=== PATIENT | female | born 1990 | race Caucasian/White ===

== ENCOUNTER → 2020-09-11 14:06 | Outpatient (BNVA) | payer MEDICAID, SELFPAY | PROVIDERS: Family Provider Internal Medicine; Visit Provider Nurse Practitioner Women's Health | DX: N92.6 Irregular menstruation, unspecified (principal) | CPT/HCPCS: 81025 ==

== ENCOUNTER → 2020-09-13 09:46 | Outpatient (BNVA) | payer MEDICAID, SELFPAY | PROVIDERS: Family Provider Internal Medicine; Visit Provider Nurse Practitioner Women's Health | DX: Z34.80 Encounter for supervision of other normal pregnancy, unspecified trimester (principal) | CPT/HCPCS: 80307; 80324; 80359; 81000; 82950; 85027; 86592; 86762; 86803; 86850; 86900; 87077; 87086; 87184; 87340; 87806 ==

== ENCOUNTER 2021-01-19 11:52 | Emergency (ER) | payer SELFPAY ==
[2021-01-19 11:59] VITALS: PULSE 78; RESP 18; TEMP 36.6; O2SAT 99; BMI 44.4
--- NOTE | 2021-01-19 12:04 | W.ED.DENTAL ---
HPI - Dental/Oral General: Chief complaint: Dental/Oral Stated complaint: SORE TOOTH Time Seen by Provider: 01/19/21 11:55 History of Present Illness: Associated symptoms: Denies ear or mastoid pain, fever(s) or odynophagia Review of Systems Const: Denies: fever(s), chills, body aches, fatigue or malaise Eyes: Denies: change in vision ENMT: Reports: dental pain; Denies: throat pain, odynophagia, hoarseness, swelling of lips/tongue, oral sores, ear or mastoid pain, ear discharge or nasal discharge Card: Denies: chest pain, palpitations or edema Resp: Denies: dyspnea GI: Denies: nausea or vomiting Musc: Denies: neck pain Skin/Breast: Denies: rash Neuro: Denies: headache(s) or dizziness PFSH ED PFSH: Medical History Anxiety No pertinent past medical history neghx: htn,dm,thyroid,dvt/pe PCP: None Surgical History History of tonsillectomy and adenoidectomy (~1998) Hx laparoscopic cholecystectomy (~2012) Family History Grandmother Heart disease Maternal Diabetes Maternal and Paternal Father Hypertension Denies family history of Colon cancer Ovarian cancer Hypercholesteremia Breast cancer Uterine cancer Thyroid disease Stroke Physical Exam Const: COMMON NORMALS: no acute distress, patient oriented x3, no limitations and alert GENERAL APPEARANCE: cooperative HENMT: COMMON NORMALS: normocephalic, atraumatic and Normal external nose present HEAD & SCALP: normal to inspection, normocephalic and atraumatic HEAD IMAGES: 1. mild swelling; no abscess NOSE: Normal external nose present MOUTH: Normal oral and palatal mucosa present, lip normal and tongue normal TEETH & GINGIVA: Yes caries, Yes poor dentition and Yes other (extremely poor dentition with extensive widespread caries) THROAT: posterior oropharynx normal, tonsils normal and uvula midline Neck/C-Spine: COMMON NORMALS: full ROM, no lymphadenopathy and no meningeal signs Resp: COMMON NORMALS: normal respiratory effort Cardio: COMMON NORMALS: regular rate and regular rhythm RATE: regular rate RHYTHM: regular rhythm Neuro: COMMON NORMALS: patient oriented x3 and CN's II-XII intact bilaterally SENSORIUM/ORIENTATION: Yes alert MENINGEAL SIGNS: Yes no meningeal signs Course Vital Signs: Vital signs: Vital Signs Temperature 98.3 F 01/19/21 12:12 Pulse Rate 88 01/19/21 12:12 Respiratory Rate 16 01/19/21 12:12 Blood Pressure 156/76 01/19/21 12:12 Pulse Oximetry 98 01/19/21 12:12 MDM - Dental/Oral MDM Narrative: Medical decision making narrative: Patient has extensive widespread dental disease. Unsure which specific tooth is causing her infection but she does have inflammation to her right lower mandibular line. She has no submandibular or anterior neck swelling. There is no discernible abscess at this time. Will place patient on Pen-VK and recommend very close follow-up with a dentist as soon as possible. She was given dental resources. She states she has seen [facility] dental clinic previously and will try to follow-up with them. Return to ED precautions given. Discharge Plan Discharge Patient Disposition: Home Clinical Impression: Dental infection Condition: Stable Prescriptions: New penicillin V potassium 500 mg tablet 500 mg PO Q8H 7 Days Qty: 21 RF: 0 No Action prenat.vits,darby,[id number] Tablet 1 tab PO DAILY RF: 0 famotidine [Pepcid AC] 20 mg tablet 20 mg PO DAILY PRNRF: 0 cephalexin 500 mg capsule 500 mg PO BID 7 Days Qty: 14 RF: 0 Discharge Orders: Discharge ED (Routine); Ordered 01/19/21 Ordered By: Liz Gray Patient Instructions: Dental Caries (Cavities), Dental Abscess (ED), Toothache (ED) Activity Restrictions/Additional Instructions: As we discussed please follow-up with a dentist as soon as possible. You have been provided a dental resource handout. Begin antibiotics immediately. You may use Tylenol as needed for discomfort and warm compresses to the outside of your face. You need to return to the emergency department in 48 hours if pain and swelling continues to increase. Coding Level of Care Code ED Case Management Associate for [facility]
[2021-01-19 12:06] VITALS: BP 182/96; PULSE 90; RESP 16; TEMP 36.9; O2SAT 98
[2021-01-19 12:12] VITALS: BP 156/76; PULSE 88; RESP 16; TEMP 36.8; O2SAT 98
== END 2021-01-19 12:15 | disposition home or self-care (01) ==
PROVIDERS: Emergency Provider Physician Assistant
DX: K04.7 Periapical abscess without sinus (principal)
CPT/HCPCS: 99281

== ENCOUNTER 2021-03-27 10:00 | Inpatient (IN) | payer SELFPAY ==
[2021-03-27] VITALS (75 sets, daily range): BP systolic 109–212; BP diastolic 70–107; PULSE 63–142; RESP 16–18; TEMP 36–36.7; O2SAT 91–100; BMI 44.0
[2021-03-27 09:18] LABS: Amphetamines Screen Urine Negative (Negative); Barbiturates Screen Urine Negative (Negative); Benzodiazepines Screen Urine Negative (Negative); Cocaine Screen Urine Negative (Negative); Opiate Screen Urine Negative (Negative); PCP Screen Urine Negative (Negative); THC Screen Urine Positive (Negative)
[2021-03-27 09:21] LABS: Bacteria Urine 1+ /hpf; Bilirubin Urine Neg (Negative); Blood Urine 3+ (Negative); Glucose Urine UA Norm (Normal); Ketones Urine Negative (Negative); Leukocyte Esterase Urine 2+ (Negative); Nitrate Urine Negative (Negative); Protein Urine Neg (Negative); Specific Gravity, Urine 1.025 (1.005-1.030); Squamous Epithelial Cell Urine 25-40 /hpf (0-5); Urine Appearance Cloudy (CLEAR); Urine Color Yellow (Yellow); Urobilinogen Urine Norm (Negative); WBC Urine 25-40 /hpf (0-5); pH Urine 5 (5-7)
[2021-03-27] MEDS: ampicillin 2,000 MG in sodium chloride 0.9% (plus) 50 ML 100 MG IV (10:07)
[2021-03-27] MEDS: dextrose 5%-lactated ringers 1,000 ML 125 ML IV ×2 (10:07→16:59)
[2021-03-27 10:19] LABS: Basophils % 0.3 %; Eosinophils # 0.2 10^3/uL (0.0-0.8); Eosinophils % 1.4 %; Hematocrit 37.3 % (37.0-47.0); Hemoglobin 12.3 g/dL (11.5-15.3); Lymphocytes # 2.6 10^3/uL (0.8-4.8); Lymphocytes % 18.2 %; Mean Corpuscular Hemoglobin 27.7 pg (28.0-34.0); Mean Platelet Volume 12.6 fL (7.4-10.4); Monocytes % 7.4 %; Neutrophils # 10.19 10^3/uL (1.8-7.7); Neutrophils % 72.3 %; Nucleated Red Blood Cells % 0 %; Platelet Count 229 10^3/cmm (130-400); Red Blood Count 4.44 10^6/uL (4.1-5.3); Red Cell Distribution Width 15.2 % (12.1-15.1); White Blood Count 14.1 10^3/uL (4.0-10.0)
[2021-03-27 12:58] LABS: Alanine Aminotransferase 7 U/L (0-33); Albumin Level 3.4 g/dL (3.5-5.2); Alkaline Phosphatase 200 IU/L (35-105); Anion Gap 18.1 (5-19); Aspartate Amino Transferase 11 U/L (0-32); Blood Urea Nitrogen 9 mg/dL (6-20); Calcium 8.3 mg/dL (8.5-10.5); Carbon Dioxide 18 mmol/L (22-29); Chloride 102 mmol/L (98-107); Globulin 3.3 g/dL (1.3-4.6); Glomerular Filtration Rate 190.1 mL/min (90-130); Glucose 78 mg/dL (65-115); Osmolality Calculated 276 mOsm/kg (285-295); Potassium 4.1 mmol/L (3.5-5.1); Sodium 134 mmol/L (136-145); Total Bilirubin 0.2 mg/dL (0.15-1.2); Total Protein 6.7 g/dL (6.6-8.7); Uric Acid 5.2 mg/dL (2.4-5.7)
[2021-03-27 13:24] LABS: Urine Creatinine 158 mg/dL (28-217)
[2021-03-27] MEDS: oxytocin 30 UNIT/500 ML BAG IV (13:30)
[2021-03-27 13:31] LABS: UPRO/UCREAT Ratio 0.16 mg/mg CR; Urine Protein Random 25 mg/dL
[2021-03-27] MEDS: ampicillin 1,000 MG in sodium chloride 0.9% (plus) 50 ML 100 MG IV (14:04)
[2021-03-27] MEDS: fentaNYL 50 mcg/mL INJ 2mL IVP (15:12)
[2021-03-27] MEDS: lactated ringers 1,000 ML 999 ML IV (15:33)
--- NOTE | 2021-03-27 16:10 | ANES.PREANE2 ---
Pre-Anesthetic Assessment Pre-Anesthetic Assessment: Height/Weight: Height 1.83 m Weight 147.418 kg Temp Pulse Resp BP Pulse Ox 98.0 F 75 18 148/73 97 03/27/21 14:35 03/27/21 16:06 03/27/21 15:12 03/27/21 16:05 03/27/21 16:06 Was Beta Renee taken within 24 hours: N/A Was Clonidine taken within 24 hours: N/A Social: Social History: Tobacco and No alcohol Exam: Pre-Anes Outpt Exam: alert, oriented x 3, clear to auscultation bilaterally and regular rate & rhythm Airway: Submandibular: WNL Cervical ROM: WNL MP: 2 Dentition: Chipped Metabolic: Metabolic: Morbid obesity Anesthetic Plan: ASA status: 2 Anesthesia: Regional (specify below) Other: Labor Epidural Risk of > 500 ml blood loss (7ml/kg in children): No Meds/Allergies Current Medications: Current Medications Generic Name Dose Route Start Last Admin Trade Name Freq PRN Reason Stop Dose Admin Fentanyl 25 - 100 mcg 03/27/21 14:53 03/27/21 15:12 Fentanyl 50 Mcg/ Ml Inj 2ml IVP 25 mcg Q1H PRN Administration SEVERE PAIN Ampicillin Sodium 1,000 mg/ 50 mls @ 100 mls/ hr 03/27/21 13:45 03/27/21 15:05 Sodium Chloride IV Infused Q4H TRU Infusion Protocol Dextrose/Lactated Ringer's 1,000 mls @ 125 m ls/hr 03/27/21 09:45 03/27/21 14:04 Dextrose 5%-Lact ated Ringers IV 125 mls/hr .Q8H TRU Infusion Oxytocin 30 unit in 500 ml s @ 1 mls/hr 03/27/21 12:30 03/27/21 14:30 Pitocin IV 5 milliunit/min .Q24H TRU 5 mls/hr Titration Protocol 1 MILLIUNIT/MIN Lactated Ringer's 1,000 mls @ 999 m ls/hr 03/27/21 15:14 03/27/21 15:33 Lactated Ringers IV 999 mls/hr .Q1H1M PRN Administration See label comment s PFSH Anesthesia PFSH: Medical History Anxiety No pertinent past medical history neghx: htn,dm,thyroid,dvt/pe PCP: None Surgical History History of tonsillectomy and adenoidectomy (~1998) Hx laparoscopic cholecystectomy (~2012) Family History Grandmother Heart disease Maternal Diabetes Maternal and Paternal Father Hypertension Denies family history of Colon cancer Ovarian cancer Hypercholesteremia Breast cancer Uterine cancer Thyroid disease Stroke Female Reproductive History: : 2 Data Anesthesia CBC & Chem 7: 03/27/21 09:50 03/27/21 09:50 Other Labs: Laboratory Results - last 48 hr 03/27/21 03/27/21 03/27/21 08:30 08:30 08:30 WBC RBC Hgb Hct MCV MCH MCHC RDW Plt Count MPV Neut % (Auto) Lymph % (Auto) Winston % (Auto) Eos % (Auto) Baso % (Auto) Neut # (Auto) Lymph # (Auto) Winston # (Auto) Eos # (Auto) Baso # (Auto) Nucleated RBC % (auto) Nucleated RBCs # Sodium Potassium Chloride Carbon Dioxide Anion Gap BUN Creatinine GFR Calculation Glucose Calculated Osmolality Uric Acid Calcium Total Bilirubin AST ALT Alkaline Phosphatase Total Protein Albumin Globulin Urine Color Yellow Urine Appearance Cloudy Urine pH 5 Ur Specific [place] 1.025 Urine Protein Neg Urine Glucose (UA) Norm Urine Ketones Negative Urine Blood 3+ H Urine Nitrate Negative Urine Bilirubin Neg Urine Urobilinogen Norm Ur Leukocyte Esterase 2+ H Urine RBC 10-15 H Urine WBC 25-40 H Ur Squamous Epith Cells 25-40 H Amorphous Sediment Not Reportable Urine Bacteria 1+ H U Random Total Protein 25 Urine Creatinine 158 Protein/Creatinin Ratio 0.16 Urine Opiates Screen Negative Ur Barbiturates Screen Negative Ur Phencyclidine Scrn Negative Ur Amphetamines Screen Negative U Benzodiazepines Scrn Negative Urine Cocaine Screen Negative U Marijuana (THC) Screen Positive H Blood Type Rho(D) Type Antibody Screen 03/27/21 03/27/21 03/27/21 09:50 09:50 09:50 WBC 14.1 H RBC 4.44 Hgb 12.3 Hct 37.3 MCV 84.0 MCH 27.7 L MCHC 33.0 RDW 15.2 H Plt Count 229 MPV 12.6 H Neut % (Auto) 72.3 Lymph % (Auto) 18.2 Winston % (Auto) 7.4 Eos % (Auto) 1.4 Baso % (Auto) 0.3 Neut # (Auto) 10.19 H Lymph # (Auto) 2.6 Winston # (Auto) 1.0 H Eos # (Auto) 0.2 Baso # (Auto) 0.0 Nucleated RBC % (auto) 0 Nucleated RBCs # 0.0 Sodium 134 L Potassium 4.1 Chloride 102 Carbon Dioxide 18 L Anion Gap 18.1 BUN 9 Creatinine 0.4 L GFR Calculation 190.1 H Glucose 78 Calculated Osmolality 276 L Uric Acid 5.2 Calcium 8.3 L Total Bilirubin 0.2 AST 11 ALT 7 Alkaline Phosphatase 200 H Total Protein 6.7 Albumin 3.4 L Globulin 3.3 Urine Color Urine Appearance Urine pH Ur Specific [place] Urine Protein Urine Glucose (UA) Urine Ketones Urine Blood Urine Nitrate Urine Bilirubin Urine Urobilinogen Ur Leukocyte Esterase Urine RBC Urine WBC Ur Squamous Epith Cells Amorphous Sediment Urine Bacteria U Random Total Protein Urine Creatinine Protein/Creatinin Ratio Urine Opiates Screen Ur Barbiturates Screen Ur Phencyclidine Scrn Ur Amphetamines Screen U Benzodiazepines Scrn Urine Cocaine Screen U Marijuana (THC) Screen Blood Type B Positive Rho(D) Type Positive Antibody Screen Negative Cardiac Studies: No Data to Display
--- NOTE | 2021-03-27 16:11 | ANES.PROC ---
Anesthesia Procedures Procedure/Date: 03/27/21 Epidural: Time Out Performed: Yes Consents Signed: Procedure Consent Consent: requested by attending/covering physician, from patient, risks and benefits reviewed and patient agrees to proceed Lumbar Level: L4-L5 Epidural position: sitting Epidural procedure: sterile prep of area, 1% lidocaine to numb the area, 18 g needle, neg for paresthesia, test dose given, 1.5% xylocaine 1:200k epi, placed PCEA, no systemic response, sterile dressing applied and 0.2% Ropiavacaine @ mls/hr (13) Additional Comments: Several attempts at L3-4 without success, one attempt at L4-5, JAISON at 9cm cath at 14cm.
--- NOTE | 2021-03-27 17:30 | PM.OBGYHP ---
Providers/Chief Complaint Admitting Physician: Austen Sauer MD Chief Complaint: contractions HPI PSYCHIATRIC MENTAL HEALTH NURSE History of Present Illness Judy Dee is a 30 year old female at 40 weeks estimated gestational age who presented to the hospital complaining of contractions. The patient was seen by Peyton Arevalo at 12 weeks estimated gestational age. At that time she had labs done. An ultrasound was performed. The patient was not seen again throughout the rest of her . She did not have any problems during her . No further testing was done. She did not have an anatomic survey. She arrived to the hospital today after having contractions since 2:00 this morning. She arrived to the hospital for further evaluation and was found to be 4 cm dilated on having contractions about every 5 minutes. She was noted to be positive for amphetamines and marijuana at her 12-week appointment. The patient claims she has not used meth for over a year. She does admit to using marijuana. Her drug screen was negative for amphetamines on arrival to hospital. Present Details : 2 Para: 1 Labs Rubella: Immune RPR: Negative GBS: Unknown Review of Systems General: Reports: 10 or more systems reviewed and unremarkable except in HPI and below Const: Reports: fatigue; Denies: fever(s) Eyes: Denies: change in vision Card: Denies: chest pain Musc: Reports: back pain Marcus/Lymph: Denies: easy bruising Medications/Allergies Home Medications Medication Instructions Recorded Confirmed Last Taken Type prenat.vits,darby,vfs-vlks-hhvqc 1 tab PO DAILY 09/11/20 09/13/20 Unknown History famotidine 20 mg tablet 20 mg PO DAILY PRN 09/13/20 09/13/20 Unknown History cephalexin 500 mg capsule 500 mg PO BID 7 Days #14 cap 09/19/20 Unknown Rx Allergies Allergy/AdvReac Type Severity Reaction Status Date / Time No Known Allergies Allergy Unverified 01/19/21 12:12 PFSH PSYCHIATRIC MENTAL HEALTH NURSE PFSH: Medical History Anxiety No pertinent past medical history neghx: htn,dm,thyroid,dvt/pe PCP: None Surgical History History of tonsillectomy and adenoidectomy (~1998) Hx laparoscopic cholecystectomy (~2012) Family History Grandmother Heart disease Maternal Diabetes Maternal and Paternal Father Hypertension Denies family history of Colon cancer Ovarian cancer Hypercholesteremia Breast cancer Uterine cancer Thyroid disease Stroke History History History 2 Term 1 Miscarriages/Ectopic 0 0 Living Children 1 Care TASIA Calculator Estimated Delivery Date Method Current WG Current Estimate 03/25/21 LMP (Certain) 40w 2d Other Estimates 03/24/21 Ultrasound #1 40w 3d Specific Issues/Plans OBESITY TOBACCO Vitals/I&O/Wt Last Vital Signs Temp 98.0 F 03/27/21 14:35 Pulse 111 H 03/27/21 17:20 Resp 18 03/27/21 15:12 BP 170/91 03/27/21 17:20 Pulse Ox 100 03/27/21 16:51 03/27/21 03/27/21 03/27/21 06:59 14:59 22:59 Intake Total 547.50 / 547.50 1215.917 / 1763.417 Balance 547.50 / 547.50 1215.917 / 1763.417 Weight last 48 hrs Weight 325 lb Physical Exam Const: COMMON NORMALS: patient oriented x3 and alert; negative for average body habitus (Obese) HENMT: COMMON NORMALS: moist oral mucous membranes HEAD & SCALP: normal to inspection Chest: COMMONS NORMALS: normal inspection of the chest Resp: COMMON NORMALS: clear to auscultation bilaterally AUSCULTATION: clear to auscultation bilaterally Cardio: COMMON NORMALS: regular rate and regular rhythm RATE: regular rate RHYTHM: regular rhythm GI: INSPECTION: Yes normal to inspection and Yes other (Gravid) Extremity: COMMON NORMALS: normal to inspection GENERAL: Yes edema (Trace) Neuro: COMMON NORMALS: patient oriented x3, moves all extremities and no sensory deficits noted SENSORIUM/ORIENTATION: Yes alert Psych: COMMON NORMALS: mental status grossly normal Skin: COMMON NORMALS: no rashes or lesions noted GENERAL SKIN EXAM: no rashes or lesions noted Data : 03/27/21 09:50 03/27/21 09:50 Results OB Labs The patient was found to be negative for HIV, hepatitis B, hepatitis C, and RPR. The patient was found to be positive for methamphetamines. She was also found to be positive for marijuana. Her initial urine was concentrated but otherwise within normal limits. Her initial complete blood count was unremarkable. Her screening urine culture demonstrated E. coli. She was treated accordingly. Her GBS status is unknown. Glucose screen was not performed. Her blood type is B+. Her antibody screen is negative. A&P Assessment and plan (1) Drug use affecting : Status: Acute (2) Supervision of other normal : Status: Acute (3) Active labor: I anticipate routine labor and vaginal delivery. She is been placed on group B strep protocol since her GBS status is unknown. Dr. Holguin is a power plant electrician on-call and he has been notified. The patient understands that DFS will be consulted due to her positive amphetamines and an adequate care. Status: Acute (4) 40 weeks gestation of : Status: Acute Attestations Medical Necessity Statement*: Routine labor and vaginal delivery care. Coding Level of Care Code Acute Deputy Juvenile Officer for [facility] [place] Fwd Exam Comprehensive Diagnoses Drug use affecting O99.320 Supervision of other normal Z34.80 Active labor 40 weeks gestation of Z3A.40
--- NOTE | 2021-03-27 18:01 | PM.DELIVERY ---
Delivery Note: Date of delivery: March 27, 2021 Pre-delivery diagnoses: 30-year-old 2 para 1 at 40 weeks estimated gestational age presenting in active labor Post-delivery diagnoses: Same Procedure: Spontaneous vaginal delivery Op report anesthesia: Epidural Delivering Physician: Austen Sauer Estimated blood loss (mL): 200 Pre-Delivery Course: The patient presented to the hospital in active labor. She initially was making change and had consistent contractions. Her contractions began to space out and her labor was augmented with Pitocin. She then progressed to complete. An amniotomy was performed. Delivery: DELIVERY: The patient progressed to complete without difficulty. She delivered a male with a weight of 7 pounds 7 ounces with Apgars of 9, 9. The baby was delivered from the COMPA position and placed on the mother's abdomen. The cord was then clamped and cut. There was a nuchal cord x1 and a body cord x1. There was no meconium. The placenta and 3 vessel cord were delivered intact shortly thereafter. The perineum and vaginal vault were carefully examined. No lacerations were noted. Both the mother and the baby were in stable condition. Post-Delivery Status: Good History History History 2 Term 1 Miscarriages/Ectopic 0 0 Living Children 1 A&P Assessment and plan (1) Drug use affecting : Status: Acute (2) Supervision of other normal : Status: Acute (3) Active labor: Status: Acute (4) 40 weeks gestation of : Status: Acute Coding Level of Care Code Acute Developer Support Engineer for [facility] Fwd Diagnoses Drug use affecting O99.320 Supervision of other normal Z34.80 Active labor 40 weeks gestation of Z3A.40
[2021-03-27] MEDS: labetalol 5 mg/mL SDV 20mL 20 MG IVP (18:19)
--- NOTE | 2021-03-27 21:00 | PC.NURSE ---
this nurse was at bedside assisting patient to the bathroom for the first time, patient asked if she could go outside. This nurse responded that she would need to stay on the unit until she was discharged. Patient asked when that changed, and was educated that it had been that way for some time now. She stated to this nurse that she was going out and appeared visibly upset and had raised her voice. This nurse then stated that she could sign out AMA if she so chose and that I would need to contact her physician. She said OK. This nurse stepped out and contacted the physician. He suggested that she be offered a nicotine patch and if that was not a solution then to DC her IV and let her leave the unit. This nurse returned to patient room and discussed options with the patient. She stated that she was going to go out but that after that she would take the nicotine patch and remain on the unit
--- NOTE | 2021-03-27 21:35 | PC.NURSE ---
DFS worker at bedside speaking with patient.
--- NOTE | 2021-03-27 22:00 | PC.NURSE ---
Patient off unit, outside to vehicle
[2021-03-27] MEDS: ibuprofen 800 mg tablet PO (22:01)
[2021-03-27] MEDS: labetalol 200 mg Tablet 100 MG PO (23:26)
[2021-03-28 00:30] VITALS: BP 131/68; PULSE 75
[2021-03-28] MEDS: nicotine 14 mg Patch 1 PATCH TRANSDERMA (01:30)
[2021-03-28 02:00] VITALS: BP 134/69; PULSE 74
[2021-03-28 04:00] VITALS: BP 132/80; PULSE 63; RESP 16
[2021-03-28 06:46] LABS: Hematocrit 32.6 % (37.0-47.0); Hemoglobin 10.6 g/dL (11.5-15.3); Mean Corpuscular HGB Conc 32.5 g/dL (30.0-36.0); Mean Corpuscular Volume 86.2 fl (81-99); Mean Platelet Volume 12.3 fL (7.4-10.4); Platelet Count 187 10^3/cmm (130-400); Red Blood Count 3.78 10^6/uL (4.1-5.3); Red Cell Distribution Width 15.6 % (12.1-15.1)
--- NOTE | 2021-03-28 07:06 | ANE.PACU2 ---
Inpatient post-anesthesia follow up: Airway intact: Yes Vital signs: Temperature 97.9 F Pulse Rate 63 Respiratory Rate 16 Blood Pressure 132/80 Pulse Oximetry 100 Oxygen Delivery Me thod Room Air Oxygen Flow Rate Fraction of Inspir ed Oxygen Hydration adequate: Yes Nausea and vomiting: No Pain level: 2 Mental status: Baseline
--- NOTE | 2021-03-28 07:21 | P.DS_ITS ---
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 Date of Admission: 03/27/21 10:00 Date of Discharge: 03/28/21 Attending Provider at Admission: Austen Sauer MD Attending Provider at Discharge: Austen Sauer MD Diagnoses at Discharge Discharge Diagnosis (1) Drug use affecting : Status: Acute (2) Supervision of other normal : Status: Acute (3) Active labor: Status: Acute (4) 40 weeks gestation of : Status: Acute (5) Tobacco smoking affecting : Status: Acute Qualifiers: Trimester: second trimester Qualified Code(s): O99.332 - Smoking (tobacco) complicating , second trimester Reason for Visit Reason for Visit: contractions Hospital Course Hospital Course The patient presented to the hospital in active labor. Her contractions began to space out, so her labor was augmented with Pitocin. An amniotomy was performed. Patient pushed through 2 contractions and delivered her baby without difficulty. The patient's course was relatively unremarkable. On the night of her delivery she did want to smoke, and the nurse discouraged her from smoking. Apparently, she was desirous to be discharged if that was necessary so that she could smoke. Fortunately, we were able to let the patient go outside, then later put her on a nicotine patch. Her bleeding was within normal limits. Her pain was well controlled. She appeared to care for the baby appropriately. She is bottlefeeding her baby. Information Peripartum Data: Delivery Method: Vaginal Physical Exam Narrative: EXAM NARRATIVE: The patient is alert. She appears comfortable. Her heart has a regular rate and rhythm with no murmurs appreciated. Lungs are clear to auscultation bilaterally. Her fundus is firm and below the umbilicus. Urinary Catheter Management^: Vasquez Latex: Cath Placed During This Visit: yes, but has since been removed by the nurse Reason for Continuing Indwelling Catheter: Decision to DC Catheter Urinary Catheter Date of Insertion: 03/27/21 Urinary Catheter Time of Insertion: 16:45 Date Urinary Catheter Removed: 03/27/21 Time Urinary Catheter Discontinued: 17:25 History History History 2 Term 1 Miscarriages/Ectopic 0 0 Living Children 1 Discharge Data Data Completed and Pending: Pending at discharge Category Date Time Status Chlamydia / Gonor angelito Panel Stat Lab 03/27/21 08:30 Received Labs from last 24 hours 1203/27/21 03/27/21 05:27 09:50 09:50 WBC 14.0 H 14.1 H RBC 3.78 L 4.44 Hgb 10.6 L 12.3 Hct 32.6 L 37.3 MCV 86.2 84.0 MCH 28.0 27.7 L MCHC 32.5 33.0 RDW 15.6 H 15.2 H Plt Count 187 229 MPV 12.3 H 12.6 H Neut % (Auto) 72.3 Lymph % (Auto) 18.2 [place] % (Auto) 7.4 Eos % (Auto) 1.4 Baso % (Auto) 0.3 Neut # (Auto) 10.19 H Lymph # (Auto) 2.6 [place] # (Auto) 1.0 H Eos # (Auto) 0.2 Baso # (Auto) 0.0 Nucleated RBC % (a uto) 0 Nucleated RBCs # 0.0 Sodium 134 L Potassium 4.1 Chloride 102 Carbon Dioxide 18 L Anion Gap 18.1 BUN 9 Creatinine 0.4 L GFR Calculation 190.1 H Glucose 78 Calculated Osmolal ity 276 L Uric Acid 5.2 Calcium 8.3 L Total Bilirubin 0.2 AST 11 ALT 7 Alkaline Phosphata se 200 H Total Protein 6.7 Albumin 3.4 L Globulin 3.3 Urine Color Urine Appearance Urine pH Ur Specific Gravit y Urine Protein Urine Glucose (UA) Urine Ketones Urine Blood Urine Nitrate Urine Bilirubin Urine Urobilinogen Ur Leukocyte Josie ase Urine RBC Urine WBC Ur Squamous Epith Cells Amorphous Sediment Urine Bacteria U Random Total Pro tein Urine Creatinine Protein/Creatinin Ratio Urine Opiates Scre en Ur Barbiturates Sc reen Ur Phencyclidine S crn Ur Amphetamines Sc reen U Benzodiazepines Scrn Urine Cocaine Scre en U Marijuana (THC) Screen Blood Type Rho(D) Type Antibody Screen 03/27/21 03/27/21 03/27/21 09:50 08:30 08:30 WBC RBC Hgb Hct MCV MCH MCHC RDW Plt Count MPV Neut % (Auto) Lymph % (Auto) [place] % (Auto) Eos % (Auto) Baso % (Auto) Neut # (Auto) Lymph # (Auto) [place] # (Auto) Eos # (Auto) Baso # (Auto) Nucleated RBC % (a uto) Nucleated RBCs # Sodium Potassium Chloride Carbon Dioxide Anion Gap BUN Creatinine GFR Calculation Glucose Calculated Osmolal ity Uric Acid Calcium Total Bilirubin AST ALT Alkaline Phosphata se Total Protein Albumin Globulin Urine Color Urine Appearance Urine pH Ur Specific Gravit y Urine Protein Urine Glucose (UA) Urine Ketones Urine Blood Urine Nitrate Urine Bilirubin Urine Urobilinogen Ur Leukocyte Josie ase Urine RBC Urine WBC Ur Squamous Epith Cells Amorphous Sediment Urine Bacteria U Random Total Pro tein 25 Urine Creatinine 158 Protein/Creatinin Ratio 0.16 Urine Opiates Scre en Negative Ur Barbiturates Sc reen Negative Ur Phencyclidine S crn Negative Ur Amphetamines Sc reen Negative U Benzodiazepines Scrn Negative Urine Cocaine Scre en Negative U Marijuana (THC) Screen Positive H Blood Type B Positive Rho(D) Type Positive Antibody Screen Negative 03/27/21 08:30 WBC RBC Hgb Hct MCV MCH MCHC RDW Plt Count MPV Neut % (Auto) Lymph % (Auto) [place] % (Auto) Eos % (Auto) Baso % (Auto) Neut # (Auto) Lymph # (Auto) [place] # (Auto) Eos # (Auto) Baso # (Auto) Nucleated RBC % (a uto) Nucleated RBCs # Sodium Potassium Chloride Carbon Dioxide Anion Gap BUN Creatinine GFR Calculation Glucose Calculated Osmolal ity Uric Acid Calcium Total Bilirubin AST ALT Alkaline Phosphata se Total Protein Albumin Globulin Urine Color Yellow Urine Appearance Cloudy Urine pH 5 Ur Specific Gravit y 1.025 Urine Protein Neg Urine Glucose (UA) Norm Urine Ketones Negative Urine Blood 3+ H Urine Nitrate Negative Urine Bilirubin Neg Urine Urobilinogen Norm Ur Leukocyte Josie ase 2+ H Urine RBC 10-15 H Urine WBC 25-40 H Ur Squamous Epith Cells 25-40 H Amorphous Sediment Not Reportable Urine Bacteria 1+ H U Random Total Pro tein Urine Creatinine Protein/Creatinin Ratio Urine Opiates Scre en Ur Barbiturates Sc reen Ur Phencyclidine S crn Ur Amphetamines Sc reen U Benzodiazepines Scrn Urine Cocaine Scre en U Marijuana (THC) Screen Blood Type Rho(D) Type Antibody Screen Vitals: Last Vital Signs Temp 97.9 F 03/27/21 18:16 Pulse 63 03/28/21 04:00 Resp 16 03/28/21 04:00 BP 132/80 03/28/21 04:00 Pulse Ox 100 03/27/21 16:51 Discharge Plan Discharge Patient Disposition: Home Condition: Stable Prescriptions: New ibuprofen 800 mg Tablet 800 mg PO TID Qty: 30 RF: 0 Continued prenat.vits,darby,[id number]-[id number] Tablet 1 tab PO DAILY RF: 0 Discontinued famotidine [Pepcid AC] 20 mg tablet 20 mg PO DAILY PRNRF: 0 cephalexin 500 mg capsule 500 mg PO BID 7 Days Qty: 14 RF: 0 Discharge Orders: Discharge Order (Routine); Ordered 03/28/21 Ordered By: Austen Sauer Referrals: Austen Sauer MD [Physician] - 6 Weeks Discharge Diet: Usual diet Discharge Activity: Limit activity as instructed Patient Instructions: Opioid Safety Discharge Attestations [employer]IC APPRENTICE Time Spent in Discharge Care*: greater than 30 min Specific Discharge Activities: Specific discharge activities: educating patient and educating and/or supporting family/caregiver Time Spent in Smoking Cessation: Time spent discussing smoking cessation with patient: 3 to 10 minutes Coding Level of Care Code Acute [employer] Designer for [employer] Diagnoses Drug use affecting O99.320 Supervision of other normal Z34.80 Active labor 40 weeks gestation of Z3A.40 Tobacco smoking affecting O99.332 Trimester: second trimester
[2021-03-28] MEDS: labetalol 200 mg Tablet 100 MG PO (09:28)
[2021-03-28] MEDS: docusate sodium 100 mg Capsule PO (09:28)
[2021-03-28] MEDS: prenatal vitamin Capsule 1 CAP PO (09:28)
[2021-03-28] MEDS: ibuprofen 800 mg tablet PO ×2 (09:28→16:19)
[2021-03-28 09:38] VITALS: BP 157/84; PULSE 86; RESP 16; TEMP 36.5
[2021-03-28 16:20] VITALS: BP 145/89; PULSE 73; RESP 16; TEMP 36.6
[2021-03-28 16:40] VITALS: BP 145/89; PULSE 73; RESP 16; TEMP 36.6
== END 2021-03-28 17:20 | disposition home or self-care (01) | DRG 807 ==
LOC: OPOB 10:03 → OBGYN 10:03
PROVIDERS: Obstetrics & Gynecology; Admitting Provider Family Medicine; Visit Provider Family Medicine
DX: O99.214 Obesity complicating childbirth (principal); Z37.0 Single live birth; O99.334 Smoking (tobacco) complicating childbirth; F17.210 Nicotine dependence, cigarettes, uncomplicated; O99.324 Drug use complicating childbirth; F12.90 Cannabis use, unspecified, uncomplicated; O99.344 Other mental disorders complicating childbirth; O69.81X0 Labor and delivery complicated by cord around neck, without compression, not applicable or unspecified; Z3A.40 40 weeks gestation of pregnancy; F41.9 Anxiety disorder, unspecified
CPT/HCPCS: 12345; 36415; 51702; 59409; 80053; 80306; 81001; 82570; 84156; 84550; 85025; 85027; 86850; 86900; 87491; 87591; J0290; J2795; J3010; J3490